=== PATIENT | female | born 1985 | race Caucasian/White ===

== ENCOUNTER 2016-07-17 14:30 | Emergency (ER) | payer BC ==
[2016-07-17 12:26] LABS: BASOPHILS 0.4 %; BASOPHILS ABSOLUTE 0.03 10/3/uL (0.0-0.16); EOSINOPHILS 0.1 %; EOSINOPHILS ABSOLUTE 0.01 10/3/uL (0.0-0.53); IMMATURE GRANULOCYTES 0.1 %; IMMATURE GRANULOCYTES ABSOLUTE 0.01 10/3/uL (0.0-0.11); LYMPHOCYTES 32.2 %; LYMPHOCYTES ABSOLUTE 2.38 10/3/uL (0.67-4.30); MEAN CORPUS HGB CONC 34.6 g/dL (32.0-36.0); MEAN CORPUSCULAR HEMOGLOB 31.1 pg (26.0-34.0); MEAN PLATELET VOLUME 11.6 fL (9.2-13.0); MONOCYTES ABSOLUTE 0.59 10/3/uL (0.21-1.20); NEUTROPHILS 59.2 %; NEUTROPHILS ABSOLUTE 4.37 10/3/uL (2.02-8.40); RBC DISTRIBUTION WIDTH 13.2 % (12.0-16.0); RED CELL COUNT 4.82 10/6/uL (4.0-5.6); WHITE BLOOD CELLS 7.4 10/3/uL (4.5-10.5)
[2016-07-17 12:28] LABS: HEMATOCRIT 43.4 % (36.0-48.0); MANUAL DIFF NO %; PLATELET COUNT 265 10/3/uL (150-400)
[2016-07-17 12:42] LABS: ALKALINE PHOSPHATASE 83 U/L (45-117); BUN (BLOOD UREA NITROGEN) 11 MG/DL (6-23); CALCIUM, SERUM 8.9 MG/DL (8.5-10.4); CHLORIDE, SERUM 100 MMOL/L (96-112); CREATININE 1.07 MG/DL (0.55-1.02); GFR AFRICAN AMERICAN 80 ML/MIN (>=60); GFR NON AFRICAN AMERICAN 69 ML/MIN (>=60); GLUCOSE, SERUM 104 MG/DL (60-99); POTASSIUM, SERUM 3.2 MMOL/L (3.5-5.3); SGOT(AST) 18 U/L (5-40); SGPT(ALT) 28 U/L (5-65); SODIUM, SERUM 134 MMOL/L (135-148); TOTAL PROTEIN 7.9 G/DL (6.0-8.5)
[2016-07-17 12:43] LABS: A/G RATIO 1.2 (0.7-1.9); ALBUMIN 4.3 G/DL (3.5-5.0); CO2 (CARBON DIOXIDE) 32 MMOL/L (24-34); GLOBULIN 3.6 G/DL (2.5-4.1); TOTAL BILIRUBIN 0.9 MG/DL (0-1.2)
[2016-07-17 13:17] LABS: ASCORBIC ACID (UR NOT ORDER) NEG (NEG); BILIRUBIN, URINE NEGATIVE (NEG); ER URINALYSIS TAT 0 Hrs 16 Mins; KETONE, URINE NEGATIVE (NEG); LEUKOCYTE ESTERASE(NOT OR NEG (NEG); NITRITE (URINE) NEG (NEG); WBC (NOT ORDERED) (RFLEX) < 1 (0-5)
[~2016-07-17 14:30] MED LIST: ABILIFY5 PO; ADDERALL20 MG PO; BENTYL20 PO; BUSPAR15 M1 PO; BUSPAR30 MG PO; COREG6 PO; CYTO5 PO; DEPO-PROVER150 MG/ML IM; HYGROTON 25 MG25 MG PO; INDE80LA PO; KLONO5 PO; KLOR-CON M2020 MEQ PO; L20 PO; LIPOTRIAD1 CAP PO; LOM PO; LOP50 PO; MELATONIN5 M1 PO; MULTIPLE VIT PO; NORV5 PO; NYS500UDL PO; PR25 PO; PRILOSEC40 MG PO; PROTONIX PO; PROZAC40 MG PO; REST15 PO; TOPAMAX25 PO; TRAZODONE150 MG PO; VANC125UDL PO; VIST50 PO; X5 PO; ZOFRAN8 PO; ZOLOFT25 MG PO; ZYRTEC ALLGY10 MG PO; [UNRECOGNIZED DRUG - CODE] PO
== END 2016-07-17 15:08 | disposition home or self-care (01) ==
LOC: ER 14:30
PROVIDERS: Emergency Medicine
DX: R11.2 Nausea with vomiting, unspecified (principal); E87.6 Hypokalemia; J45.909 Unspecified asthma, uncomplicated; K21.9 Gastro-esophageal reflux disease without esophagitis; F41.9 Anxiety disorder, unspecified; Z88.2 Allergy status to sulfonamides; Z88.0 Allergy status to penicillin; Z91.040 Latex allergy status; Z88.1 Allergy status to other antibiotic agents; Z79.899 Other long term (current) drug therapy
CPT/HCPCS: 80053; 81001; 83690; 84703; 85025; 96374; 99285; A9270-GY; J2550

== ENCOUNTER 2016-08-01 11:03 | Observation (INO) | payer BC ==
--- NOTE | ~2016-08-01 | DS ---
Discharge Summary [facility] [address] [place]. [address] NAME: BRYCE CANDELARIA : 83 STATUS : ADM Marleni PAT#: [id number] AGE: 31 ADM/REG DATE : 08/01/16 MR#: [id number] REPORT SERV DATE: 08/02/16 DICTATED BY: DAVID GOODWIN DATE: 08/02/16 REPORT STATUS : Draft TRANSCRIBED BY: XAVIER DATE: 08/02/16 ADMISSION DATE: 08/01/2016 DISCHARGE DATE: DISCHARGE DIAGNOSES: Include, 1. Abdominal pain. 2. Nausea likely gastroparesis flare. 3. Anxiety disorder. 4. Morbid obesity. 5. History of hypertension. 6. Questionable hypothyroidism on current Cytomel treatment that was started five weeks ago. 7. History of insomnia. DISCHARGE MEDICINES: BuSpar 30 mg at bedtime and BuSpar 15 mg in the morning, Pepcid 20 mg daily, Zantac 300 mg at bedtime, Cytomel 5 mcg p.o. daily, melatonin 10 mg at bedtime, Protonix 40 mg twice a day, Inderal 80 mg daily, trazodone 150 mg at bedtime, Klonopin 0.25 mg three times a day p.r.n. for anxiety, Zyrtec 10 mg daily p.r.n. for allergies. HISTORY OF PRESENT ILLNESS: This 31-year-old white female who presented with some abdominal pain and gastroparesis-like symptoms, and some complaints of weight gain. Please see initial H and P of Dr. Kenneth Wiley as the patient is admitted to the Hospitalist Service for further evaluation and treatment. CONSULTANTS DURING THIS ADMISSION: Include GI, Dr. David Hinds. Initially, the patient was given an NG tube for some attempts of decompression. Lab work was ordered and followed, and supportive treatment with antiemetics and IV fluid. KUB during this admission showed a bowel gas pattern that was nonobstructive and an NG tube in satisfactory position when shot. HOSPITAL COURSE: The patient's symptoms began to slowly resolve the following day with only some mild abdominal pain, some mild nausea, but no vomiting. She too was able to tolerate some clear liquids with some success. In review of her medication list, she had recently been taking a new medicine for the IBS-D called Dmitry, and I have instructed her to stop this medication to see if symptoms of her nausea were related to the new medicine. Also, the patient states that she had recently in the past five weeks started on Cytomel with Dr. Camacho Grayson. I have instructed her to follow up with him as an outpatient in reference to this for further lab work testing as our TSH here came back 5.450. Given patient's symptomatic improvement and with these medication adjustments and direct care counselor, she was felt safe for discharge home on 08/02/2016 and instructed to follow up with her primary care, Dr. Llanes; her advanced practice rn, Dr. Paul; and her weight loss physician, Dr. Camacho Grayson, who prescribed the Cytomel. She is in agreement with this plan going forward. Questions were answered at bedside. DICTATED BY: David Goodwin NP Discharge Summary [address] [address] NAME: BRYCE CANDELARIA : 83 STATUS : ADM Marleni PAT#: [id number] AGE: 31 ADM/REG DATE : 08/01/16 MR#: [id number] REPORT SERV DATE: 08/02/16 DICTATED BY: DAVID GOODWIN DATE: 08/02/16 REPORT STATUS : Draft TRANSCRIBED BY: XAVIER DATE: 08/02/16 [facility] [place], [place]/XAVIER David Goodwin NP / [id number] CC: MD Rupa Coronel M.D.
--- NOTE | ~2016-08-01 | HP ---
History And Physical [facility] [address] [place]. [address] NAME: BRYCE CANDELARIA : 83 STATUS : ADM Marleni PAT#: [id number] AGE: 31 ADM/REG DATE : 08/01/16 MR#: [id number] REPORT SERV DATE: 08/01/16 DICTATED BY: GURINDER SCHUMACHER DATE: 08/01/16 REPORT STATUS : Draft TRANSCRIBED BY: XAVIER DATE: 08/01/16 DATE OF ADMISSION: 08/01/2016 REASON FOR ADMISSION: Gastroparesis. HISTORY OF PRESENT ILLNESS: This is a 31-year-old obese white female with a weight gain of 20 pounds, seen in the emergency room by Dr. Vidal. He has consulted and discussed the case with Dr. Chencho Paul. She is followed by Dr. Chencho Paul for gastroparesis. The patient has been having increasing abdominal pain. Her primary care doctor gave her Percocet, which she has been taking sparingly. She is asking for pain medication for her abdominal pain. She had a CT scan of the abdomen done at [facility] at the [facility]. Report is not available yet. She has been having the vomiting and abdominal pain for about a week duration. Dr. Paul had suggested she be discharged and follow up as an outpatient; however, the patient still having abdominal pain, Dr. Vidal unable to discharge her, called hospitalist for admission. The patient says she is willing to have an NG tube to decompress the stomach. This has been done before and it seemed to help. PAST MEDICAL HISTORY: She has had laparoscopic surgery for endometriosis and ovarian cysts in the past. She also has a left knee, left ankle surgery, and arthroscopies. She has a history of Gallo-Danlos syndrome. She believes she has mixed connective tissue disease and had remote tonsillectomy and adenoidectomy. HOME MEDICATIONS: Include trazodone at bedtime, BuSpar p.r.n., Percocet, Klonopin. She is also on some from Dr. Paul and had been on Adderall but this medicine had been tapered in the past. Full list is being identified now. 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 She attends [employer]. She does not smoke cigarette or take any alcohol. She lives with her fiancee, and they are going to get some time. FAMILY HISTORY: Her mother has reactive hypoglycemia and bipolar affective disorder. She has some hypertension as well. Father has hepatitis C. There is no full sibling relationship. REVIEW OF SYSTEMS: No headache, eye pain, or double vision. She has had vomiting and she vomits much of what she eats over the last 3 to 4 days. She has swelling. She has had decompression of her stomach in the past and did help the abdominal pain. The abdominal pain is mainly generalized epigastric associated with nausea. A little vomiting. History And Physical [address] [address] NAME: BRYCE CANDELARIA : 83 STATUS : ADM Marleni PAT#: [id number] AGE: 31 ADM/REG DATE : 08/01/16 MR#: [id number] REPORT SERV DATE: 08/01/16 DICTATED BY: GURINDER SCHUMACHER DATE: 08/01/16 REPORT STATUS : Draft TRANSCRIBED BY: XAVIER DATE: 08/01/16 She has had mostly diarrhea of her stools and has been taking Percocet, the Bentyl that may have slowed her stomach down some. She has had no swelling in lower extremities. No unilateral weakness. No melena or hematemesis. Otherwise negative review of systems. The remainder of the review of systems is negative. PHYSICAL EXAMINATION: GENERAL: Obese white female, in no acute distress. VITAL SIGNS: Blood pressure 141/84 with a heart rate of 88, respiratory rate 14, afebrile. HEENT: EOMI. Sclerae clear. Conjunctivae pink. NECK: No bruit without any JVD. CHEST: Clear to A and P. HEART: Regular S1, S2 without murmur, gallop, or click. ABDOMEN: Obese, nontender. Bowel sounds positive. EXTREMITIES: Has no edema. Distal pulses intact with dorsalis pedis and posterior tibial. NEUROLOGIC: She withdraws to plantar stimulation. Gauge And Weigh Machine Adjuster equal and symmetric. LYMPHATICS: There is no adenopathy palpable. SKIN: Without rash, ecchymosis, or bruising. LABORATORY: Urine specific gravity is 1.014 with a pH of 6. Hemoglobin 12.9, hematocrit 38.7, platelets 167,000, and WBC is 7.2. CMP shows sodium 138, potassium 4.1, creatinine 0.93, BUN 8, glucose was 94, albumin is 3.1, calcium 8.4, lipase 90. ASSESSMENT: 1. Gastroparesis by historical data. She says NG tube has decompressed and she felt better before. We will get a CT scan of the abdomen from [facility], not repeat another one here and decompress at the rate of 1500 mL per 24 hours. If the NG tube output is scant, we can discontinue the NG tube and proceed with feeding. The patient says she is allergic to Reglan. She has been tried on erythromycin and droperidol in the past. We will consult Dr. Paul or his nurse practitioner to see in his absence to make recommendations. Hopefully, we can get the stomach down by the time that she is here. The patient is in an occupation associated with medical care, and her symptoms signs with her having gained [address] Vidal points out since the last visit here. In the absence of other thoughts or suggestions, we will try decompression again to see if we can reset the curve for the stomach and allow to empty adequately. 1. Anxiety, on Klonopin. 2. Abdominal pain, previously taken Percocet. 3. Hypothyroidism. 4. Morbid obesity. 5. Insomnia. History And Physical [address] [address] NAME: BRYCE CANDELARIA : 83 STATUS : ADM Marleni PAT#: [id number] AGE: 31 ADM/REG DATE : 08/01/16 MR#: [id number] REPORT SERV DATE: 08/01/16 DICTATED BY: GURINDER SCHUMACHER DATE: 08/01/16 REPORT STATUS : Draft TRANSCRIBED BY: MODIzzy DATE: 08/01/16 6. Attention deficit hyperactivity disorder. Addendum: With the patient having a health occupation, would have to consider Munchausen syndrome as well. DB/JONIL Gurinder Schumacher M.D. / [id number] CC: Cristobal Arellano Jr, MD Munford Yates III, M.D.
--- NOTE | ~2016-08-01 | CN ---
Consultation Report [facility] [address] [place]. [address] NAME: BRYCE CANDELARIA : 83 STATUS : ADM Marleni PAT#: [id number] AGE: 31 ADM/REG DATE : 08/01/16 MR#: [id number] REPORT SERV DATE: 08/02/16 DICTATED BY: PABLO HINDS DATE: 08/02/16 REPORT STATUS : Draft TRANSCRIBED BY: XAVIER DATE: 08/02/16 CONSULTATION DATE OF CONSULTATION: 08/02/2016 TERMITE TREATER HELPER: Dr. Paul. REASON FOR CONSULTATION: Nausea and vomiting in a lady with diagnosis of gastroparesis which is idiopathic. HISTORY AND PHYSICAL: Ms. Burr is a 31-year-old patient of Dr. Paul whom he has been treating as an outpatient for gastroparesis, who presents yesterday with what she describes as significant nausea, vomiting, and abdominal pain. She says usually she has the nausea but not this bad, but the vomiting is something that has occurred again. It was decided initially to treat her in the emergency room, and discharge her, but she insisted on admission because symptoms getting worse. She states that in the past when she has been this bad that has been an NG tube inserted which alleviates her symptoms. An NG tube was inserted in the emergency room and about 400 mL of liquids were aspirated. Subsequently because of severe retching and nausea, the tube came out. In the emergency room, she had a KUB which revealed NG tube appearing to be in satisfactory position with its tip in the region of the mid stomach. As mentioned, the tube has since come out. Going to her history, she had an EGD done just recently on 07/01/2016 which showed grade C reflux esophagitis, hiatal hernia, and the esophagus was dilated because of her complaints of dysphagia. HOME MEDICATIONS: Include BuSpar, Zyrtec, Klonopin, Pepcid, Cytomel, melatonin, Protonix, Inderal, Zantac, trazodone, and Viberzi. ALLERGIES: MULTIPLE LISTED WHICH INCLUDE WELLBUTRIN, DEMEROL, REGLAN, PLAQUENIL, LEXAPRO, PENICILLIN, CEPHALOSPORIN, SULFA, MORPHINE, ALBUTEROL, CLARITHROMYCIN, ZOFRAN, LATEX, KIWI, AND AVOCADO. PAST SURGICAL HISTORY: 1. Multiple laparoscopic surgeries for endometriosis. 2. Removal of the ovary. 3. Some surgery for her ureters. REVIEW OF SYSTEMS: GENERAL: Describes the general health to be fair to poor. No fever, chills. There is anorexia. There is no weight loss. She is in fact obese. SKIN: Normal. HEENT: Hearing normal, vision normal. GI: As mentioned above. Consultation Report [address] [place]. [address] NAME: BRYCE CANDELARIA : 83 STATUS : ADM Marleni PAT#: [id number] AGE: 31 ADM/REG DATE : 08/01/16 MR#: [id number] REPORT SERV DATE: 08/02/16 DICTATED BY: PABLO HINDS DATE: 08/02/16 REPORT STATUS : Draft TRANSCRIBED BY: XAVIER DATE: 08/02/16 CARDIOVASCULAR: Palpitations. PULMONARY: Negative. ENDOCRINE: Negative. GENITOURINARY: Negative. MUSCULOSKELETAL: Negative. FAMILY HISTORY: Noncontributory from a GI standpoint. PHYSICAL EXAMINATION: GENERAL: She is a fully alert, oriented lady presently in no distress. VITAL SIGNS: Stable vital signs. Afebrile. NECK: Supple without lymphadenopathy, thyromegaly, or carotid bruits. HEENT: Normal. LUNGS: Reveal good air entry bilaterally. No rales or rhonchi. CVS: Reveals normal S1, S2. No gallop, rub, or murmur. COMPUTER NUMERIC CONTROL SETTER: Normal. ABDOMEN: Soft, nondistended, nontender. There is no mass, guarding, rigidity, or rebound. Liver and spleen, not palpable. Clinically, no ascites. EXTREMITIES: Without edema. LABORATORY DATA: A CMP done on admission reveals a glucose of 109, albumin is 3.1, otherwise negative LFTs and normal lipase. BMP this morning is normal except for a glucose of 100. White count is 7.2, hemoglobin and hematocrit 12.9 and 38.1, platelets 167,000. IMPRESSION: 1. Nausea, vomiting, carries a diagnosis of gastroparesis, allergic to Reglan and Zofran, the patient demanding Phenergan. Etiology of gastroparesis is unclear as the patient is not a diabetic or a kidney patient. She tells me that it is idiopathic as she was told that by Dr. Paul. 2. Other problems as mentioned. RECOMMENDATIONS: 1. We will start on clear liquid diet. 2. Continue Zofran. 3. Even better can be discharged and follow up with Dr. Paul as an outpatient. TRINO/XAVIER Dirk Hinds M.D. / [id number] Consultation Report [address] [address] NAME: BRYCE CANDELARIA : 83 STATUS : ADM Marleni PAT#: [id number] AGE: 31 ADM/REG DATE : 08/01/16 MR#: [id number] REPORT SERV DATE: 08/02/16 DICTATED BY: PABLO HINDS DATE: 08/02/16 REPORT STATUS : Draft TRANSCRIBED BY: XAVIER DATE: 08/02/16 CC: Ayo Bird III, M.D.
[2016-08-01 10:15] LABS: BASOPHILS 0.3 %; BASOPHILS ABSOLUTE 0.02 10/3/uL (0.0-0.16); EOSINOPHILS 0 %; HEMOGLOBIN 12.9 g/dL (12.0-16.0); IMMATURE GRANULOCYTES 0.4 %; IMMATURE GRANULOCYTES ABSOLUTE 0.03 10/3/uL (0.0-0.11); LYMPHOCYTES 28.6 %; LYMPHOCYTES ABSOLUTE 2.05 10/3/uL (0.67-4.30); MEAN CORPUS HGB CONC 33.9 g/dL (32.0-36.0); MEAN CORPUSCULAR HEMOGLOB 31.6 pg (26.0-34.0); MEAN PLATELET VOLUME 11.3 fL (9.2-13.0); MONOCYTES 6.8 %; MONOCYTES ABSOLUTE 0.49 10/3/uL (0.21-1.20); NEUTROPHILS 63.9 %; NEUTROPHILS ABSOLUTE 4.58 10/3/uL (2.02-8.40); RBC DISTRIBUTION WIDTH 13.6 % (12.0-16.0); RED CELL COUNT 4.08 10/6/uL (4.0-5.6); WHITE BLOOD CELLS 7.2 10/3/uL (4.5-10.5)
[2016-08-01 10:16] LABS: ER CBC TAT 0 Hrs 03 MinsNP; HEMATOCRIT 38.1 % (36.0-48.0); MANUAL DIFF NO %; MEAN CORPUSCULAR VOLUME 93.4 fL (80-100); PLATELET COUNT 167 10/3/uL (150-400)
[2016-08-01 10:23] LABS: ASCORBIC ACID (UR NOT ORDER) NEG (NEG); BILIRUBIN, URINE NEGATIVE (NEG); ER URINALYSIS TAT 0 Hrs 07 Mins; KETONE, URINE NEGATIVE (NEG); LEUKOCYTE ESTERASE(NOT OR TRACE (NEG); NITRITE (URINE) NEG (NEG); WBC (NOT ORDERED) (RFLEX) 1 (0-5)
[2016-08-01 10:31] LABS: ALKALINE PHOSPHATASE 78 U/L (45-117); BUN (BLOOD UREA NITROGEN) 8 MG/DL (6-23); CALCIUM, SERUM 8.4 MG/DL (8.5-10.4); CHLORIDE, SERUM 107 MMOL/L (96-112); CREATININE 0.93 MG/DL (0.55-1.02); GFR AFRICAN AMERICAN 94 ML/MIN (>=60); GFR NON AFRICAN AMERICAN 81 ML/MIN (>=60); GLUCOSE, SERUM 109 MG/DL (60-99); SGOT(AST) 24 U/L (5-40); SGPT(ALT) 46 U/L (5-65); SODIUM, SERUM 138 MMOL/L (135-148)
[2016-08-01 10:32] LABS: ALBUMIN 3.1 G/DL (3.5-5.0); CO2 (CARBON DIOXIDE) 27 MMOL/L (24-34); POTASSIUM, SERUM 4.1 MMOL/L (3.5-5.3); TOTAL BILIRUBIN 0.4 MG/DL (0-1.2); TOTAL PROTEIN 6.1 G/DL (6.0-8.5)
[2016-08-01] MEDS ORDERED: PROTONIX PO (13:59)
[2016-08-01] MEDS ORDERED: ZANTAC300 MG PO (14:00)
[2016-08-01] MEDS ORDERED: CYTO5 PO (14:00)
[2016-08-01] MEDS ORDERED: INDE80 PO (14:01)
[2016-08-01] MEDS ORDERED: KLONO5 PO (14:02)
[2016-08-01] MEDS ORDERED: BUSPAR30 MG PO (14:04)
[2016-08-01] MEDS ORDERED: BUSPAR15 M1 PO (14:04)
[2016-08-01] MEDS ORDERED: VIBERZI 75 MG PO (14:04)
[2016-08-01] MEDS ORDERED: TRAZODONE150 MG PO (14:05)
[2016-08-01] MEDS ORDERED: PEP20 PO (14:05)
[2016-08-01] MEDS ORDERED: ZYRTEC ALLGY10 MG PO (14:06)
[2016-08-01] MEDS ORDERED: MELATONIN10 M2 PO (14:06)
[2016-08-02 04:49] LABS: BUN (BLOOD UREA NITROGEN) 5 MG/DL (6-23); CALCIUM, SERUM 8.5 MG/DL (8.5-10.4); CHLORIDE, SERUM 107 MMOL/L (96-112); CO2 (CARBON DIOXIDE) 27 MMOL/L (24-34); CREATININE 0.81 MG/DL (0.55-1.02); GFR AFRICAN AMERICAN 111 ML/MIN (>=60); GFR NON AFRICAN AMERICAN 96 ML/MIN (>=60); GLUCOSE, SERUM 100 MG/DL (60-99); POTASSIUM, SERUM 3.8 MMOL/L (3.5-5.3); SODIUM, SERUM 140 MMOL/L (135-148)
[2016-08-02] MEDS ORDERED: PR12.5 PO (16:42)
== END 2016-08-02 17:58 | disposition home or self-care (01) ==
LOC: ER 11:03 → CDU1 13:31
PROVIDERS: Emergency Medicine; Internal Medicine
DX: K31.84 Gastroparesis (principal); F41.9 Anxiety disorder, unspecified; Q79.6 Ehlers-Danlos syndromes; E07.9 Disorder of thyroid, unspecified; E66.01 Morbid (severe) obesity due to excess calories; Z68.43 Body mass index [BMI] 50.0-59.9, adult; Z98.890 Other specified postprocedural states; Z90.89 Acquired absence of other organs; Z81.8 Family history of other mental and behavioral disorders; Z82.49 Family history of ischemic heart disease and other diseases of the circulatory system; Z83.49 Family history of other endocrine, nutritional and metabolic diseases; Z83.79 Family history of other diseases of the digestive system; Z88.0 Allergy status to penicillin; Z88.1 Allergy status to other antibiotic agents; Z88.2 Allergy status to sulfonamides; Z88.5 Allergy status to narcotic agent; Z88.8 Allergy status to other drugs, medicaments and biological substances; Z91.040 Latex allergy status; Z91.018 Allergy to other foods; Z79.899 Other long term (current) drug therapy
CPT/HCPCS: 74000; 80048; 80053; 81001; 83690; 84443; 85025; 96372; 96374; 96375; 96376; 99285; A9270-GY; G0378; J1170; J2550